=== PATIENT | female | born 1980 | race Caucasian/White ===

== ENCOUNTER 2019-09-20 13:53 | Emergency (ER) | payer SELFPAY ==
[~2019-09-20] VITALS: Ht 175.3 cm; Wt 129.7 kg
--- OUTSIDE RECORDS SUMMARY | ~2019-09-20 | XMS | Encounter Summary ---
Demographics + + + | Address | [address] | | | [place] [address] | + + + | Home Phone | | + + + | Preferred Language | Unknown | + + + | Marital Status | Single | + + + | Zoroastrianism Affiliation | NON | + + + | Race | White | + + + | Ethnic Group | Not or | + + + Author + + + | Organization | Unknown | + + + | Address | Unknown | + + + | Phone | Unavailable | + + + Support + + +---------+ + | Name | Relationship | Address | Phone | + + +---------+ + | Gely Lauren | ECON | Unknown | | + + +---------+ + Care Team Providers + +------+ + | Care Bistro Attendant Name | Role | Phone | + +------+ + PCP | Unavailable | + +------+ + Encounter Details +--------+ + + + + | Date | Type | Department | Care Team | Description | +--------+ + + + + | 11/04/ | Results | | Other, Faculty | | | 2000 | Only | | [phone] | | +--------+ + + + + Social History + +-------+ +--------+------+ | Tobacco Use | Types | Packs/Day | Years | Date | | | | | Used | | + +-------+ +--------+------+ | Never Assessed | | | | | + +-------+ +--------+------+ + + + | Sex Assigned at | Date Recorded | | | | + + + | Not on file | | + + + + + + + | Job Start Date | Occupation | Industry | + + + + | Not on file | Not on file | Not on file | + + + + + + + + | Travel History | Travel Start | Travel End | + + + + + + | No recent travel history available. | + + documented as of this encounter Plan of Treatment Not on filedocumented as of this encounter Procedures + +--------+ + + + | Procedure Name | Priori | Date/Time | Associated Diagnosis | Comments | | | ty | | | | + +--------+ + + + | ECHOGRAM, PREG | Routin | 11/04/2000 | | Results for this | | AGE ROUT. | e | 12:49 PM | | procedure are in the | | | | PDT | | results section. | + +--------+ + + + documented in this encounter Results ECHOGRAM, PREG AGE ROUT. (11/04/2000 12:49 PM PDT) + + + + + + | Component | Value | Ref Range | Performed | Pathologist | | | | | At | Signature | + + + + + + | ECHOGRAM, | Radiologist 1: | | | | | PREG | AB JONES | | | | | AGE ROUT. | DOUGLASFETAL ULTRASOUND: | | | | | | 11/04/2000 | | | | | | Dictated 11/09/2000 | | | | | | CLINICAL HISTORY: | | | | | | Anomaly screen. | | | | | | | | | | | | Abnormal triple screen | | | | | | FINDINGS: There is a | | | | | | single intrauterine | | | | | | fetus present in | | | | | | variableposition. | | | | | | MEASUREMENTS: | | | | | | MEASUREMENT GEST | | | | | | AGE RANGE | | | | | | PERCENTILE | | | | | | | | | | | | (cm) (wks) | | | | | | (wks) (at | | | | | | 17.9 wks) | | | | | | | | | | | | | | | | | | | | | | | | Biparietal diameter | | | | | | 3.6 17.0 | | | | | | (15.9 - 18.2) 25 | | | | | | Femur length | | | | | | 2.3 | | | | | | 16.9 (15.8 - 18.0) | | | | | | 20 Head | | | | | | circumference 13.9 | | | | | | 17.3 (16.1 | | | | | | - 18.4) 20 Abd. | | | | | | circumference 12.6 | | | | | | 18.2 | | | | | | (17.0 - 19.4) 53 | | | | | | GESTATIONAL AGE: | | | | | | From today's | | | | | | measurements -- 17.4 wks | | | | | | (17w2d); CLAIR 04/02/01. | | | | | | From LMP | | | | | | | | | | | | --17.9 wks (17w6d); CLAIR | | | | | | 04/08/01. WEIGHT: | | | | | | From AC & BPD | | | | | | (Sandoval) | | | | | | 200 (180 - 230) | | | | | | grams. From AC, BPD, | | | | | | FL (Hadlock) | | | | | | 200 (180 - 220) | | | | | | grams. ANATOMY: There is | | | | | | heart motion and | | | | | | gross movement. | | | | | | Theplacenta is anterior. | | | | | | The amniotic fluid | | | | | | volume is normal. | | | | | | Thefollowing structures | | | | | | were seen and appeared | | | | | | grossly normal: | | | | | | Cerebrallateral | | | | | | ventricle, BPD level, | | | | | | cerebellum, four chamber | | | | | | heart, LVOT,stomach, | | | | | | abdominal wall, three | | | | | | vessel cord, kidneys, | | | | | | bladder, spine,radii and | | | | | | ulnae, tibiae and | | | | | | fibulae, nuchal | | | | | | fold.Structures not | | | | | | mentioned are not | | | | | | optimally seen. | | | | | | COMMENTS:The placenta is | | | | | | anterior.No adnexal | | | | | | masses are noted.The | | | | | | cervix measures 3.6 cm | | | | | | endovaginally.The | | | | | | humerus measures 2.3 cm | | | | | | = 17w0d.An amniocentesis | | | | | | was not performed | | | | | | today. IMPRESSION: | | | | | | Intrauterine | | | | | | consistent with | | | | | | menstrual dating. No | | | | | | fetalabnormalities were | | | | | | seen on todays | | | | | | examination. The patient | | | | | | wascounseled on the | | | | | | limitations of | | | | | | ultrasound for | | | | | | diagnosing | | | | | | chromosomalabnormalities | | | | | | . She elected against | | | | | | amniocentesis. END OF | | | | | | IMPRESSION: | | | | + + + + + + + + | Specimen | + + | | + + + + + | Narrative | Performed At | + + + | Ordered by ART PIRES M.D. | | + + + + +---------+ + + | Performing | Address | City/State/Zipcode | Phone Number | | Organization | | | | + +---------+ + + | [facility] | | | | | RADIOLOGY | | | | + +---------+ + + documented in this encounter Visit Diagnoses Not on filedocumented in this encounter"
--- OUTSIDE RECORDS SUMMARY | ~2019-09-20 | XMS | Clinical Summary ---
Demographics + + + | Address | [address] | | | [place] [address] | + + + | Home Phone | | + + + | Preferred Language | Unknown | + + + | Marital Status | Single | + + + | Evangelical Affiliation | NON | + + + [...] Team Providers + +------+ + | Care Campus Ambassador Name | Role | Phone | + +------+ + PCP | Unavailable | + +------+ + Source Comments KELLI is fully live on both [facility] Ambulatory and [facility] InPatient.On License Of [facility] Allergies Not on File Medications Not on file Active Problems Not on file Social History + +-------+ +--------+------+ | Tobacco [...] recent travel history available. | + + Last Filed Vital Signs Not on file Plan of Treatment + + + + + | Health Maintenance | Due Date | Last Done | Comments | + + + + + | Influenza (Flu) | | | | | vaccination (#1) | 9 | | | + + + + + | Pneumococcal | Aged Out | | No longer eligible | | vaccination | | | based on patient's | | | | | age to complete this | | | | | topic | + + + + + Results Not on filefrom Last 3 Months"
--- OUTSIDE RECORDS SUMMARY | ~2019-09-20 | XMS | Encounter Summary ---
Demographics + + + | Address | [address] | | | [place] [address] | + + + | Home Phone | | + + + | Preferred Language | Unknown | + + + | Marital Status | Single | + + + | Islam Affiliation | NON | + + + [...] Team Providers + +------+ + | Care Machine Sneller Name | Role | Phone | + +------+ + PCP | Unavailable | + +------+ + Encounter Details +--------+ + + + + | Date | Type | Department | Care Team | Description | +--------+ + + + + | 11/04/ | Results | | Other, Faculty | | | 2000 | Only | | [phone] | | +--------+ + + + + [...] | | + +---------+ + + | [facility] DEPARTMENT | | | | | RADIOLOGY | | | | + +---------+ + + documented in this encounter Visit Diagnoses Not on filedocumented in this encounter"
--- OUTSIDE RECORDS SUMMARY | ~2019-09-20 | XMS | Clinical Summary ---
Demographics + + + | Address | [address] | | | [place] [address] | + + + | Home Phone | | + + + | Preferred Language | Unknown | + + + | Marital Status | Single | + + + | Jehovah'S Witness Affiliation | NON | + + + [...] Team Providers + +------+ + | Care Sketcher Name | Role | Phone | + +------+ + PCP | Unavailable | + +------+ + Source Comments KELLI is fully live on both [facility] Ambulatory and [facility] InPatient.[facility] Allergies Not on File Medications [...]
[2019-09-20] MEDS ORDERED: BACTRIM DS TAB1 EACH PO ×2 (17:19→17:51)
[2019-09-20] MEDS ORDERED: KEFLEX500 MG PO (17:51)
== END 2019-09-20 18:17 | disposition home or self-care (01) ==
LOC: ED 13:53
DX: L02.31 Cutaneous abscess of buttock (principal); F17.200 Nicotine dependence, unspecified, uncomplicated
CPT/HCPCS: 99283